=== PATIENT | female | born 1930 | race Asian ===

== ENCOUNTER 2019-04-20 17:01 | Inpatient (IN) | payer OTHER, BC ==
[~2019-04-20] VITALS: Ht 157.5 cm; Wt 73.0 kg
[2019-04-20 17:14] VITALS: BP_SYST 123
[2019-04-20] MEDS ORDERED: NACL 0.9% 1,000 ML IV ONE ×3 (17:15→19:00)
[2019-04-20 17:52] LABS: BASOPHILS # (AUTO) 0.1 K/uL (0.0-0.2); BASOPHILS % (AUTO) 0.9 % (0.0-2.0); EOSINOPHILS # (AUTO) 0.4 K/uL (0.0-0.4); EOSINOPHILS % (AUTO) 4.9 % (0.0-4.0); HEMATOCRIT 46.7 % (36-48); HEMOGLOBIN 15.3 g/dL (12.0-16.0); LYMPHOCYTES # (AUTO) 1.5 K/uL (1.0-5.5); LYMPHOCYTES % (AUTO) 20.6 % (20.5-51.5); MEAN CORPUSCULAR HEMOGLOBIN 30 pg (27-31); MEAN CORPUSCULAR HGB CONC 33 % (32-36); MEAN CORPUSCULAR VOLUME 90 fL (79.0-98.0); MONOCYTES # (AUTO) 0.6 K/uL (0.0-1.0); MONOCYTES % (AUTO) 8.5 % (1.7-9.3); NEUTROPHILS # (AUTO) 4.8 K/uL (1.8-7.7); NEUTROPHILS % (AUTO) 65.1 % (40.0-70.0); PLATELET COUNT (AUTO) 291 K/uL (130-430); RED CELL DISTRIBUTION WIDTH 14.2 % (9.0-15.0); WHITE BLOOD COUNT (AUTO) 7.4 K/uL (4.8-10.8)
[2019-04-20 18:02] LABS: INR 0.9 (0.8-1.2); PROTHROMBIN TIME 9.5 SECS (9.5-12.5)
[2019-04-20 18:07] LABS: ALANINE AMINOTRANSFERASE 19 U/L (12-78); ALBUMIN 3.2 g/dL (3.4-4.8); ANION GAP 11 (5-15); ASPARTATE AMINOTRANSFERASE 23 U/L (10-37); CHLORIDE 102 mmol/L (98-107); GLUCOSE 143 mg/dL (70-99); POTASSIUM 3.7 mmol/L (3.5-5.1); SODIUM SERUM 140 mmol/L (136-145); TOTAL BILIRUBIN 0.4 mg/dL (0.0-1.0); UREA NITROGEN, BLOOD 22 mg/dL (8-21)
[2019-04-20 18:13] LABS: CALCIUM 9.4 mg/dL (8.4-11.0)
[2019-04-20 18:23] LABS: BILIRUBIN,URINE NEGATIVE (NEGATIVE); BLOOD, URINE NEGATIVE (NEGATIVE); COLOR,URINE YELLOW (YELLOW); GLUCOSE,URINE NEGATIVE (NEGATIVE); KETONES,URINE NEGATIVE (NEGATIVE); LEUKOCYTE ESTERASE ,URINE 3+ (NEGATIVE); NITRITE, URINE NEGATIVE (NEGATIVE); PROTEIN URINE NEGATIVE (NEGATIVE); UROBILINOGEN,URINE 0.2 (0.2-1.0)
[2019-04-20 18:31] LABS: CLARITY/URINE HAZY (CLEAR)
[2019-04-20 18:32] LABS: BACTERIA,URINE MODERATE /HPF (None Seen); MUCUS,URINE None Seen /LPF (None Seen); RBC,URINE 0-3 /HPF (0-3); WBC,URINE 50-80 /HPF (0-3)
[2019-04-20] MEDS ORDERED: LEVOFLOXACIN 500 MG/D5W 100 ML IV ONE (18:45)
[2019-04-20] MEDS ORDERED: GABA-531 PO (19:04)
[2019-04-20] MEDS ORDERED: ALEN70SO3 PO (19:04)
[2019-04-20] MEDS ORDERED: ASA81 PO (19:04)
[2019-04-20] MEDS ORDERED: CLOP300T2 PO (19:04)
[2019-04-20] MEDS ORDERED: FURO-149 PO (19:04)
[2019-04-20] MEDS ORDERED: SOLI10TA2 PO (19:04)
[2019-04-20] MEDS ORDERED: ALL300 PO (19:04)
[2019-04-20] MEDS ORDERED: DONE10TA44 PO (19:04)
[2019-04-20] MEDS ORDERED: LISI2.5T48 PO (19:05)
[2019-04-20] MEDS ORDERED: FLUT1DIS IH (19:05)
[2019-04-20] MEDS ORDERED: FLO44 INH (19:05)
[2019-04-20] MEDS ORDERED: METO25TA3 PO (19:05)
[2019-04-20] MEDS ORDERED: CALC-823 PO (19:05)
[2019-04-20] MEDS ORDERED: FAMO20TA8 PO (19:05)
[2019-04-20] MEDS ORDERED: SIMV20TA2 PO (19:05)
[2019-04-20] MEDS ORDERED: FLUT1DIS3 IH (19:05)
[2019-04-20 19:53] VITALS: BP_SYST 149
[2019-04-20] MEDS ORDERED: cefTRIAXone 1 GM in D5W 50 ML IV ONE (21:00)
[2019-04-20] MEDS ORDERED: cefTRIAXone 1 GM IVPB PREMIX 50 ML IV ONE (22:45)
[2019-04-20 23:22] VITALS: BP_SYST 160
[2019-04-21 06:26] VITALS: BP_SYST 175
[2019-04-21 07:31] LABS: BASOPHILS % (AUTO) 0.7 % (0.0-2.0); EOSINOPHILS # (AUTO) 0.3 K/uL (0.0-0.4); HEMOGLOBIN 14.2 g/dL (12.0-16.0); LYMPHOCYTES # (AUTO) 1.6 K/uL (1.0-5.5); LYMPHOCYTES % (AUTO) 23.2 % (20.5-51.5); MEAN CORPUSCULAR HEMOGLOBIN 30 pg (27-31); MEAN CORPUSCULAR HGB CONC 32 % (32-36); MEAN CORPUSCULAR VOLUME 92 fL (79.0-98.0); MONOCYTES # (AUTO) 0.7 K/uL (0.0-1.0); MONOCYTES % (AUTO) 9.6 % (1.7-9.3); NEUTROPHILS # (AUTO) 4.2 K/uL (1.8-7.7); NEUTROPHILS % (AUTO) 61.5 % (40.0-70.0); PLATELET COUNT (AUTO) 246 K/uL (130-430); RED CELL DISTRIBUTION WIDTH 14.1 % (9.0-15.0); WHITE BLOOD COUNT (AUTO) 6.8 K/uL (4.8-10.8)
[2019-04-21 07:44] LABS: ANION GAP 5 (5-15); CALCIUM 8.4 mg/dL (8.4-11.0); CHLORIDE 111 mmol/L (98-107); CHOLESTEROL 128 mg/dL (<200); CREATININE 1.14 mg/dL (0.55-1.30); GLUCOSE 115 mg/dL (70-99); HDL CHOLESTEROL 35 mg/dL (>55); LDL CHOLESTEROL 81 mg/dL (<100); POTASSIUM 3.6 mmol/L (3.5-5.1); SODIUM SERUM 142 mmol/L (136-145); THYROID STIMULATING HORMONE 1.29 uIu/mL (0.34-4.82); TRIGLYCERIDES 104 mg/dL (30-150); UREA NITROGEN, BLOOD 14 mg/dL (8-21)
[2019-04-21 08:14] VITALS: BP_SYST 165
[2019-04-21] MEDS: CALCIUM CARBONATE/VITAMIN D3 1 TAB TABLET PO SCH (08:23)
[2019-04-21] MEDS: NACL 0.9% 1,000 ML IV SCH (08:23)
[2019-04-21] MEDS: DONEPEZIL HCL 5 MG TABLET (ARICEPT) PO SCH (08:23)
[2019-04-21] MEDS: CLOPIDOGREL BISULFATE 75 MG TABLET PO SCH (08:23)
[2019-04-21] MEDS: ASPIRIN 81 MG TAB.CHEW PO SCH (08:23)
[2019-04-21] MEDS: METOPROLOL SUCCINATE 25 MG TAB.SR.24H (TOPROL XL) PO SCH (08:24)
[2019-04-21] MEDS: GABAPENTIN 300 MG CAPSULE PO SCH ×3 (08:24→20:31)
[2019-04-21] MEDS: FUROSEMIDE 40 MG TABLET PO SCH (08:24)
[2019-04-21] MEDS ORDERED: LISINOPRIL 10 MG TABLET (PRINIVIL) PO SCH (09:00)
[2019-04-21] MEDS ORDERED: SALMETEROL IH SCH (09:00)
[2019-04-21] MEDS ORDERED: FLUTICASONE 44 mcg/ACTUATION MDI AER.W.ADAP INH SCH (09:00)
[2019-04-21] MEDS ORDERED: HEPARIN SODIUM,PORCINE 5000 UNITS/ML VIAL SUBCUT SCH (09:00)
[2019-04-21] MEDS ORDERED: FLUTICASONE IH SCH (09:00)
[2019-04-21] MEDS ORDERED: NON-FORMULARY MEDICATION (Solifenacin Succinate (Vesicare) 10 MG) PO SCH (09:00)
[2019-04-21] MEDS ORDERED: ALLOPURINOL 300 MG TABLET (ZYLOPRIM) PO SCH (09:00)
[2019-04-21] MEDS ORDERED: hydrALAZINE HCL 10 MG TABLET PO ONE (11:00)
[2019-04-21 12:21] VITALS: BP_SYST 179
[2019-04-21 13:26] VITALS: BP_SYST 183
[2019-04-21] MEDS: cloNIDine HCL 0.2 MG TABLET PO PRN ×2 (13:38→23:14)
[2019-04-21 17:05] VITALS: BP_SYST 132
[2019-04-21 20:16] VITALS: BP_SYST 135
[2019-04-21] MEDS: FAMOTIDINE 20 MG TABLET PO SCH (20:30)
[2019-04-21] MEDS: cefTRIAXone 1 GM in D5W 50 ML IV SCH (20:30)
[2019-04-21] MEDS: SIMVASTATIN 20 MG TABLET PO SCH (20:30)
[2019-04-22 00:21] VITALS: BP_SYST 147
[2019-04-22 04:59] VITALS: BP_SYST 149
[2019-04-22 06:22] LABS: BASOPHILS % (AUTO) 0.4 % (0.0-2.0); EOSINOPHILS # (AUTO) 0.4 K/uL (0.0-0.4); EOSINOPHILS % (AUTO) 5.9 % (0.0-4.0); HEMOGLOBIN 14.1 g/dL (12.0-16.0); LYMPHOCYTES # (AUTO) 1.8 K/uL (1.0-5.5); LYMPHOCYTES % (AUTO) 27.3 % (20.5-51.5); MEAN CORPUSCULAR HEMOGLOBIN 30 pg (27-31); MEAN CORPUSCULAR HGB CONC 33 % (32-36); MEAN CORPUSCULAR VOLUME 92 fL (79.0-98.0); MONOCYTES # (AUTO) 0.6 K/uL (0.0-1.0); MONOCYTES % (AUTO) 8.9 % (1.7-9.3); NEUTROPHILS # (AUTO) 3.7 K/uL (1.8-7.7); NEUTROPHILS % (AUTO) 57.5 % (40.0-70.0); PLATELET COUNT (AUTO) 227 K/uL (130-430); RED BLOOD CELL COUNT(AUTO) 4.67 MIL/uL (4.2-6.2); RED CELL DISTRIBUTION WIDTH 13.9 % (9.0-15.0); WHITE BLOOD COUNT (AUTO) 6.4 K/uL (4.8-10.8)
[2019-04-22 06:34] LABS: ANION GAP 7 (5-15); CALCIUM 9.1 mg/dL (8.4-11.0); CHLORIDE 105 mmol/L (98-107); CREATININE 1.06 mg/dL (0.55-1.30); GLUCOSE 134 mg/dL (70-99); POTASSIUM 3.5 mmol/L (3.5-5.1); SODIUM SERUM 139 mmol/L (136-145); UREA NITROGEN, BLOOD 16 mg/dL (8-21)
[2019-04-22] MEDS: METOPROLOL SUCCINATE 25 MG TAB.SR.24H (TOPROL XL) PO SCH (09:00)
[2019-04-22] MEDS: DONEPEZIL HCL 5 MG TABLET (ARICEPT) PO SCH (09:06)
[2019-04-22] MEDS: ASPIRIN 81 MG TAB.CHEW PO SCH (09:06)
[2019-04-22] MEDS: CALCIUM CARBONATE/VITAMIN D3 1 TAB TABLET PO SCH (09:06)
[2019-04-22] MEDS: GABAPENTIN 300 MG CAPSULE PO SCH ×3 (09:07→21:25)
[2019-04-22] MEDS: CLOPIDOGREL BISULFATE 75 MG TABLET PO SCH (09:07)
[2019-04-22] MEDS: FUROSEMIDE 40 MG TABLET PO SCH (09:08)
[2019-04-22] MEDS: LISINOPRIL 10 MG TABLET (PRINIVIL) PO SCH (09:08)
[2019-04-22] MEDS: cloNIDine HCL 0.2 MG TABLET PO PRN (11:00)
[2019-04-22 13:18] VITALS: BP_SYST 123
[2019-04-22] MEDS: ALBUTEROL SULFATE 0.083% 2.5 MG/3 ML VIAL.NEB INH SCH ×2 (13:45→19:28)
[2019-04-22] MEDS: OXYBUTYNIN CHLORIDE 5 MG TABLET PO SCH ×2 (15:31→21:26)
[2019-04-22 17:12] VITALS: BP_SYST 132
[2019-04-22] MEDS: BUDESONIDE 0.5 MG/2 ML AMPUL.NEB INH SCH (19:28)
[2019-04-22 20:00] VITALS: BP_SYST 143
[2019-04-22] MEDS: FAMOTIDINE 20 MG TABLET PO SCH (21:25)
[2019-04-22] MEDS: SIMVASTATIN 20 MG TABLET PO SCH (21:26)
[2019-04-22] MEDS: cefTRIAXone 1 GM in D5W 50 ML IV SCH (21:27)
[2019-04-23 00:36] VITALS: BP_SYST 111
[2019-04-23] MEDS: ALBUTEROL SULFATE 0.083% 2.5 MG/3 ML VIAL.NEB INH SCH ×3 (01:37→13:50)
[2019-04-23 06:14] LABS: ANION GAP 10 (5-15); CALCIUM 9.3 mg/dL (8.4-11.0); CHLORIDE 103 mmol/L (98-107); CREATININE 1.26 mg/dL (0.55-1.30); GLUCOSE 139 mg/dL (70-99); HEMATOCRIT 40.7 % (36-48); HEMOGLOBIN 14.1 g/dL (12.0-16.0); MEAN CORPUSCULAR HEMOGLOBIN 32 pg (27-31); MEAN CORPUSCULAR HGB CONC 35 % (32-36); MEAN CORPUSCULAR VOLUME 91 fL (79.0-98.0); PLATELET COUNT (AUTO) 374 K/uL (130-430); POTASSIUM 3.7 mmol/L (3.5-5.1); RED BLOOD CELL COUNT(AUTO) 4.48 MIL/uL (4.2-6.2); RED CELL DISTRIBUTION WIDTH 14.5 % (9.0-15.0); SODIUM SERUM 143 mmol/L (136-145); UREA NITROGEN, BLOOD 17 mg/dL (8-21)
[2019-04-23] MEDS: BUDESONIDE 0.5 MG/2 ML AMPUL.NEB INH SCH (07:00)
[2019-04-23 07:56] LABS: WHITE BLOOD COUNT (AUTO) 8.6 K/uL (4.8-10.8)
[2019-04-23] MEDS: CALCIUM CARBONATE/VITAMIN D3 1 TAB TABLET PO SCH (07:59)
[2019-04-23] MEDS: CLOPIDOGREL BISULFATE 75 MG TABLET PO SCH (07:59)
[2019-04-23] MEDS: OXYBUTYNIN CHLORIDE 5 MG TABLET PO SCH ×2 (07:59→15:14)
[2019-04-23] MEDS: DONEPEZIL HCL 5 MG TABLET (ARICEPT) PO SCH (07:59)
[2019-04-23] MEDS: GABAPENTIN 300 MG CAPSULE PO SCH ×2 (07:59→15:14)
[2019-04-23] MEDS: ASPIRIN 81 MG TAB.CHEW PO SCH (08:00)
[2019-04-23] MEDS: METOPROLOL SUCCINATE 25 MG TAB.SR.24H (TOPROL XL) PO SCH (08:00)
[2019-04-23 08:17] VITALS: BP_SYST 94
[2019-04-23] MEDS: FUROSEMIDE 40 MG TABLET PO SCH (08:17)
[2019-04-23] MEDS: LISINOPRIL 10 MG TABLET (PRINIVIL) PO SCH (08:17)
[2019-04-23 08:19] VITALS: BP_SYST 115
[2019-04-23] MEDS: NACL 0.9% 1,000 ML IV SCH (09:00)
[2019-04-23 12:40] LABS: ATYPICAL LYMPHOCYTES % 3 % (0-0); BAND % (MANUAL) 5 % (0-6); BASOPHILS % (MANUAL) 1 % (0-2); EOSINOPHILS % (MANUAL) 6 % (0-7); LYMPHOCYTES % (MANUAL) 18 % (20-46); MONOCYTES % (MANUAL) 7 % (0-11)
[2019-04-23 12:55] VITALS: BP_SYST 106
[2019-04-23 16:19] VITALS: BP_SYST 106
[2019-04-23] MEDS: cefTRIAXone 1 GM in D5W 50 ML IV SCH (16:26)
[2019-04-23 16:29] VITALS: BP_SYST 103
== END 2019-04-23 19:00 | DRG 871 ==
LOC: SED 17:01 → STU 18:47 → SMU 04-22 08:13
PROVIDERS: ADMIT Student in an Organized Health Care Education/Training Program; ATTEND Student in an Organized Health Care Education/Training Program
DX: A41.9 Sepsis, unspecified organism (principal); N17.0 Acute kidney failure with tubular necrosis; E44.1 Mild protein-calorie malnutrition; N39.0 Urinary tract infection, site not specified; E78.5 Hyperlipidemia, unspecified; F02.80 Dementia in other diseases classified elsewhere, unspecified severity, without behavioral disturbance, psychotic disturbance, mood disturbance, and anxiety; G30.9 Alzheimer's disease, unspecified; I10 Essential (primary) hypertension; I25.10 Atherosclerotic heart disease of native coronary artery without angina pectoris; S80.211A Abrasion, right knee, initial encounter; S80.01XA Contusion of right knee, initial encounter; R26.9 Unspecified abnormalities of gait and mobility; G62.9 Polyneuropathy, unspecified; J44.9 Chronic obstructive pulmonary disease, unspecified; K21.9 Gastro-esophageal reflux disease without esophagitis; W18.39XA Other fall on same level, initial encounter; Y93.89 Activity, other specified; Y92.89 Other specified places as the place of occurrence of the external cause; Y99.8 Other external cause status; Z68.29 Body mass index [BMI] 29.0-29.9, adult; Z79.82 Long term (current) use of aspirin; Z79.899 Other long term (current) drug therapy
CPT/HCPCS: 36415; 71045; 80048; 80053; 80061; 81000-TC; 83605; 83735-TC; 84443-TC; 84484; 85007; 85025; 85027; 85610-TC; 85730-TC; 87040-TC; 87086; 93005; 94640; 96361; 96365; 97110-GP; 99285; G0378; J0696; J1956; J7030; J7060; J7613; J7626